=== PATIENT | female | born 1955 | race Caucasian/White ===

== ENCOUNTER 2018-11-24 12:02 | Outpatient (CLI) | payer OTHER ==
--- NOTE | 2018-11-24 12:34 | RAD ---
LUMBAR SPINE SERIES THREE VIEWS: History: Injured approximately 7 weeks ago. Comparison: None. FINDINGS: The bones are demineralized. There is a wedge shaped compression change, more involving the inferior endplate of L2. There is disc narrowing at this level. There is a retrolisthesis of the L2 on L3. The re is also some mild superior endplate compression change of L1 and T12 and almost a vertebral plana deformity of T10. There is scoliotic change and the pedicles appear intact. IMPRESSION: Multilevel compression changes, the age of which are indeterminate. POS: [facility]
--- NOTE | 2018-11-24 12:55 | RAD ---
FRONTAL AND LATERAL IMAGING OF THE THORACIC SPINE: Date: 11-24-18 Comparison: None. History: Strained back 7 weeks ago lifting a bale of hay. FINDINGS: There is an age indeterminate prominent compression fracture of T10. There is at least 70% loss of ve rtebral height centrally. There is questionable retropulsion. There is also an age indeterminate ante rior wedge compression fracture at T7 with approximately 25% loss of vertebral body height anteriorly . IMPRESSION: Age indeterminate fracture deformities involving the T10 and T7 vertebral bodies as detailed above. Code T POS: [facility]
== END 2018-11-24 12:03 | disposition home or self-care (01) ==
LOC: MADRAD 12:02
PROVIDERS: ATTEND Nurse Practitioner Family
DX: M54.6 Pain in thoracic spine (principal); M54.5 Low back pain; S22.060A Wedge compression fracture of T7-T8 vertebra, initial encounter for closed fracture; S22.079A Unspecified fracture of T9-T10 vertebra, initial encounter for closed fracture
CPT/HCPCS: 72070; 72100